=== PATIENT | male | born 1960 | race Two or more races ===

== ENCOUNTER 2016-12-15 20:12 | Emergency (ER) | payer BC ==
[2016-12-15 20:20] VITALS: TEMP 98.4; BMI 34.2
[2016-12-15] MEDS ORDERED: TRIAMTERENE AND HCTZ - 37.5 MG/25 MG CAPSULE PO ONE (20:48)
[2016-12-15] MEDS ORDERED: HYDROCHLOROTHIAZIDE 25 MG TABLET (FP) ONE (20:49)
--- NOTE | 2016-12-15 21:05 | PDOC ---
History of Present Illness - General History Source: Patient - History of Present Illness Initial Comments: 12/16/16 00:16 55-year-old with a history of hypertension presents to the emergency department complaining of 8/10 sharp intermittent pain to the left buttocks which radiates to the lateral mid thigh 2 days. Pain is exacerbated when ambulating and alleviated at rest. Patient states he was lifting something heavy at work when he felt acute pain. Patient denies any headache, dizziness, lightheadedness, visual disturbance, facial pain, neck pain, back pains, chest pain, shortness of breath, abdominal pains, extremity numbness or tingling sensation. Upon triage, patient was informed that his blood pressure was elevated. Patient states he ran out of his hypertension medication/HCTZ 25 mg by mouth 1 tab daily daily 2 months ago. Patient cannot recall his PMD's name but states he hasn't seen him 5 months. Patient last was seen at [facility] clinic and was given a refill of his hypertension medication which he ran out. Patient is asymptomatic. Timing/Duration: other (48hrs) Severity: mild Associated Symptoms: reports: denies symptoms <Chelo Castro - Last Filed: 12/16/16 00:19> <Srinath Griffith - Last Filed: 12/18/16 09:13> - General Chief Complaint: Chronic pain Stated Complaint: SIDE HURTS Time Seen by Provider: 12/15/16 20:30 Past History - Past Medical History HTN: Yes - Immunization History Immunization Up to Date: Yes - Psycho/Social/Smoking Cessation Hx Suicidal Ideation: No Smoking Status: Yes Smoking History: Current some day smoker Number of Cigarettes Smoked Daily: 10 Information on smoking cessation initiated: No Hx Alcohol Use: No Drug/Substance Use Hx: No <Chelo Castro - Last Filed: 12/16/16 00:19> <Srinath Griffith - Last Filed: 12/18/16 09:13> - Past Medical History Allergies/Adverse Reactions: Allergies Allergy/AdvReac Type Severity Reaction Status Date / Time No Known Allergies Allergy Verified 12/15/16 20:20 Home Medications: Ambulatory Orders Hydrochlorothiazide [Hctz -] 25 mg PO DAILY 12/13/12 Hctz 25Mg/Triamterene [Dyazide 25/37.5 -] 1 cap PO DAILY #30 capsule 12/16/16 Ketorolac Tromethamine [Toradol] 10 mg PO TID #21 tablet 12/16/16 Review of Systems - Review of Systems Able to Perform ROS?: Yes Comments:: 12/16/16 00:15 CONSTITUTIONAL: Absent: fever, chills, diaphoresis, generalized weakness, malaise, loss of appetite HEENT: Absent: rhinorrhea, nasal congestion, throat pain, throat swelling, difficulty swallowing, mouth swelling, ear pain, eye pain, visual Changes CARDIOVASCULAR: Absent: chest pain, loss of consciousness, palpitations, irregular heart rate, peripheral edema RESPIRATORY: Absent: cough, shortness of breath, dyspnea with exertion, orthopnea, wheezing, stridor, hemoptysis GASTROINTESTINAL: Absent: abdominal pain, abdominal distension, nausea, vomiting, diarrhea, constipation, melena, hematochezia GENITOURINARY: Absent: dysuria, frequency, urgency, hesitancy, hematuria, flank pain, genital pain MUSCULOSKELETAL: +Left buttock pain radiating to lat mid thigh Absent: myalgia, arthralgia, joint swelling SKIN: Absent: rash, itching, pallor HEMATOLOGIC/IMMUNOLOGIC: Absent: easy bleeding, easy bruising, lymphadenopathy, frequent infections ENDOCRINE: Absent: unexplained weight gain, unexplained weight loss, heat intolerance, cold intolerance NEUROLOGIC: Absent: headache, focal weakness or paresthesias, dizziness, unsteady gait, seizure, mental status changes, bladder or bowel incontinence PSYCHIATRIC: Absent: anxiety, depression, suicidal or homicidal ideation, hallucinations. Is the patient limited Gabonese proficient: No <Chelo Castro - Last Filed: 12/16/16 00:19> *Physical Exam - Vital Signs Last Vital Signs Temp Pulse Resp BP Pulse Ox 98.4 F 108 H 20 195/121 98 12/15/16 20:15 12/15/16 20:15 12/15/16 20:15 12/15/16 20:41 12/15/16 20:15 - Physical Exam Comments: 12/16/16 00:15 GENERAL: Well developed, well nourished. Awake and alert. No acute distress. HEENT: Normocephalic, atraumatic. PERRLA, EOMI. No conjunctival pallor. Sclera are non- icteric. Moist mucous membranes. Oropharynx is clear. NECK: Supple. Full ROM. No JVD. Carotid pulses 2+ and symmetric, without bruits. No thyromegaly. No lymphadenopathy. CARDIOVASCULAR: Regular rate and rhythm. No murmurs, rubs, or gallops. Distal pulses are 2+ and symmetric. PULMONARY: No evidence of respiratory distress. Lungs clear to auscultation bilaterally. No wheezing, rales or rhonchi. ABDOMINAL: Soft. Non-tender. Non-distended. No rebound or guarding. No organomegaly. Normoactive bowel sounds. MUSCULOSKELETAL Normal range of motion at all joints. No bony deformities or tenderness. No CVA tenderness. EXTREMITIES: No cyanosis. No clubbing. No edema. No calf tenderness. SKIN: Warm and dry. Normal capillary refill. No rashes. No jaundice. NEUROLOGICAL: Alert, awake, appropriate. Cranial nerves 2-12 intact. No deficits to light touch and temperature in face, upper extremities and lower extremities. No motor deficits in the in face, upper extremities and lower extremities. Normoreflexic in the upper and lower extremities. Normal speech. Toes are down- going bilaterally. Gait is normal without ataxia. PSYCHIATRIC: Cooperative. Good eye contact. Appropriate mood and affect. <Chelo Castro - Last Filed: 12/16/16 00:19> - Vital Signs Last Vital Signs Temp Pulse Resp BP Pulse Ox 98.4 F 89 19 162/98 98 12/15/16 20:15 12/16/16 00:28 12/16/16 00:28 12/16/16 00:28 12/16/16 00:28 <Srinath Griffith - Last Filed: 12/18/16 09:13> ED Treatment Course - LABORATORY CBC & Chemistry Diagram: 12/15/16 21:20 12/15/16 21:20 - Medications Given in the ED: ED Medications Discontinued Medications Generic Name Dose Route Start Last Admin Trade Name Freq PRN Reason Stop Dose Admin Triamterene/HCTZ 1 cap 12/15/16 20:48 12/15/16 20:52 Dyazide 25/37.5mg PO 12/15/16 20:49 1 cap ONCE ONE Administration <Chelo Castro - Last Filed: 12/16/16 00:19> - LABORATORY CBC & Chemistry Diagram: 12/15/16 21:20 12/15/16 21:20 - ADDITIONAL ORDERS Additional order review: 12/15/16 21:20 RBC 5.66 H MCV 82.7 MCHC 32.9 RDW 14.5 MPV 8.9 Neutrophils % 72.5 Lymphocytes % 17.2 Monocytes % 8.7 Eosinophils % 1.1 D Basophils % 0.5 - Medications Given in the ED: ED Medications Discontinued Medications Generic Name Dose Route Start Last Admin Trade Name Kentrell PRN Reason Stop Dose Admin Clonidine 0.1 mg 12/15/16 21:55 12/15/16 22:11 Catapres - PO 12/15/16 21:56 0.1 mg ONCE ONE Administration Ketorolac Tromethamine 60 mg 12/15/16 21:35 12/15/16 21:43 Toradol Injection - IM 12/15/16 21:36 60 mg ONCE ONE Administration Labetalol HCl 10 mg 12/15/16 22:50 12/15/16 23:09 Normodyne Injection - IVPUSH 12/15/16 22:51 10 mg ONCE ONE Administration Morphine Sulfate 4 mg 12/15/16 23:15 12/15/16 23:23 Morphine Injection - IVPUSH 12/15/16 23:16 4 mg ONCE ONE Administration Triamterene/HCTZ 1 cap 12/15/16 20:48 12/15/16 20:52 Dyazide 25/37.5mg PO 12/15/16 20:49 1 cap ONCE ONE Administration <Srinath Griffith - Last Filed: 12/18/16 09:13> Medical Decision Making - Medical Decision Making The patient was seen and evaluated in conjunction with LAURO Castro under my direct supervision, ancillary studies were reviewed. I agree with the plan as outlined by LAURO Castro. <Srinath Griffith - Last Filed: 12/18/16 09:13> *DC/Admit/Observation/Transfer - Discharge Dispostion Admit: No <Chelo Castro - Last Filed: 12/16/16 00:19> <Srinath Griffith - Last Filed: 12/18/16 09:13> Diagnosis at time of Disposition: Sciatic leg pain HTN (hypertension) Qualifiers: Hypertension type: unspecified Qualified Code(s): I10 - Essential (primary) hypertension - Discharge Dispostion Disposition: HOME Condition at time of disposition: Stable - Prescriptions Prescriptions: Hctz 25Mg/Triamterene [Dyazide 25/37.5 -] 1 cap PO DAILY #30 capsule Ketorolac Tromethamine [Toradol] 10 mg PO TID #21 tablet - Referrals Referrals: Leroy Chapin MD [Staff Physician] - Verna Shields MD [Staff Physician] - - Patient Instructions Printed Discharge Instructions: High Blood Pressure, DI for Sciatica Additional Instructions: YOU MUST SEE YOUR PHYSICIAN THIS WEEK. 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 Take your high blood pressure daily/HCTZ Return to the ER for severe/persistent/worsening symptoms As we've discussed in depth while you are in the emergency department, it is imperative that you follow-up with your physician regarding your hypertension this week. You do not get symptoms of headaches, dizziness, lightheadedness, visual disturbance or any discomfort when your blood pressure is elevated which can be very dangerous.
[2016-12-15 21:26] LABS: BASOPHIL 0.5 % (0-2.0); EOSINOPHIL 1.1 % (0-4.5); MCH 27.2 pg (25.7-33.7); MCHC 32.9 g/dl (32.0-35.9); MEAN CELL VOLUME 82.7 fl (80-96); MEAN PLT VOLUME 8.9 fl (7.5-11.1); NEUTROPHILS 72.5 % (42.8-82.8); PLATELET COUNT 158 K/MM3 (134-434); RDW 14.5 % (11.9-15.9); WHITE BLOOD COUNT 10.3 K/mm3 (4.0-10.0)
[2016-12-15] MEDS ORDERED: KETOROLAC TROMETHAMINE 60 MG/2 ML VIAL IM ONE (21:35)
[2016-12-15] MEDS ORDERED: KETOROLAC TROMETHAMINE 60 MG/2 ML VIAL ONE (21:38)
[2016-12-15] MEDS ORDERED: cloNIDine HCL 0.1 MG TABLET PO ONE (21:55)
[2016-12-15 21:56] LABS: ALBUMIN 4.2 g/dl (3.4-5.0); ALK PHOS 112 U/L (45-117); ANION GAP 7 (8-16); BILIRUBIN,TOTAL 0.6 mg/dL (0.2-1.0); CALCIUM 9.5 mg/dL (8.5-10.1); CO2 30 mmol/L (21-32); CREATININE 1.4 mg/dL (0.7-1.3); GLUCOSE,RANDOM 100 mg/dL (74-106); SGOT/AST 16 U/L (15-37); SGPT/ALT 32 U/L (12-78); TOT PROT 7.4 g/dl (6.4-8.2)
[2016-12-15] MEDS ORDERED: cloNIDine HCL 0.1 MG TABLET ONE (22:06)
[2016-12-15] MEDS ORDERED: LABETALOL HCL 5 MG/1 ML (100MG/20 ML VIAL) IVPUSH ONE (22:50)
[2016-12-15] MEDS ORDERED: LABETALOL HCL 5 MG/1 ML (200MG/40ML VIAL) IVPB ONE (22:56)
[2016-12-15] MEDS ORDERED: morphine CARPU-JECT 4 MG/1 ML DISP.SYRIN IVPUSH ONE (23:15)
[2016-12-15] MEDS ORDERED: morphine CARPU-JECT 4 MG/1 ML DISP.SYRIN ONE (23:19)
[2016-12-16 00:29] VITALS: BP 162/98; PULSE 89
[2016-12-16] MEDS ORDERED: KETOROLAC TROMETHAMINE 10 MG TABLET PO SCH (06:00)
== END 2016-12-16 00:32 | disposition home or self-care (01) ==
LOC: JER 20:12
PROC: 3E0333Z Introduction of Anti-inflammatory into Peripheral Vein, Percutaneous Approach (ICD-10-PCS; principal; 2016-12-15)
PROC: 3E033NZ Introduction of Analgesics, Hypnotics, Sedatives into Peripheral Vein, Percutaneous Approach (ICD-10-PCS; 2016-12-15)
PROC: 3E033GC Introduction of Other Therapeutic Substance into Peripheral Vein, Percutaneous Approach (ICD-10-PCS; 2016-12-15)
DX: M54.32 Sciatica, left side (principal); I10 Essential (primary) hypertension; F17.210 Nicotine dependence, cigarettes, uncomplicated
CPT/HCPCS: 36415; 80053; 85025; 99282-25

== ENCOUNTER 2017-04-10 15:29 | Emergency (ER) | payer BC ==
[2017-04-10 15:46] VITALS: BP 186/114; PULSE 100; TEMP 98.7; BMI 28.8
--- NOTE | 2017-04-10 15:46 | PDOC ---
Rapid Medical Evaluation Time Seen by Provider: 04/10/17 15:42 Medical Evaluation: Allergies Allergy/AdvReac Type Severity Reaction Status Date / Time No Known Allergies Allergy Verified 12/15/16 20:20 04/10/17 15:43 I have performed a brief in-person evaluation of this patient. The patient presents with a chief complaint of: Scalp abscess x 2 days. H/o HTN Pertinent physical exam findings: Hypertensive at triage w/ 4x2cm area on induration w/ overlying erythema I have ordered the following:nothing The patient will proceed to the ED for further evaluation. 04/10/17 15:44
--- NOTE | 2017-04-10 17:08 | PDOC ---
History of Present Illness - General Chief Complaint: Wound Stated Complaint: ABSCESS BOIL Time Seen by Provider: 04/10/17 15:42 Past History - Past Medical History Allergies/Adverse Reactions: Allergies Allergy/AdvReac Type Severity Reaction Status Date / Time No Known Allergies Allergy Verified 12/15/16 20:20 Home Medications: Ambulatory Orders Azilsartan Med/Chlorthalidone [Edarbyclor 40-25 mg Tablet] 1 each PO ASDIR 04/10 Cephalexin Monohydrate [Keflex -] 500 mg PO BID #14 capsule 04/10/17 Ibuprofen 800 mg PO TID #30 tablet 04/10/17 Sulfamethoxazole/Trimethoprim [Bactrim Ds -] 1 tab PO BID #14 tablet 04/10/17 COPD: No HTN: Yes - Immunization History Immunization Up to Date: Yes - Suicide/Smoking/Psychosocial Hx Smoking Status: Yes Smoking History: Current some day smoker Number of Cigarettes Smoked Daily: 10 Information on smoking cessation initiated: No Hx Alcohol Use: No Drug/Substance Use Hx: No *Physical Exam - Vital Signs Last Vital Signs Temp Pulse Resp BP Pulse Ox 98.7 F 100 H 18 186/114 100 04/10/17 15:30 04/10/17 15:30 04/10/17 15:30 04/10/17 15:30 04/10/17 15:30 *DC/Admit/Observation/Transfer Diagnosis at time of Disposition: Induration of skin - Discharge Dispostion Disposition: HOME Condition at time of disposition: Stable Admit: No - Referrals Referrals: Eliseo Andino [Primary Care Provider] - Yared Rushing MD [Staff Physician] - - Patient Instructions Printed Discharge Instructions: DI for Skin Abscess Additional Instructions: You have a skin infection to the back of her scalp. Please take the antibiotics as prescribed. Your prescribed Keflex and Bactrim. You may take ibuprofen as needed for pain. Please wash her work, to avoid getting more bacteria in the area of the skin. Please call Dr. Rushing's office tomorrow, general surgery, for evaluation. Return to the emergency department if you develop fevers, chills, headache, changes in your vision, neck pain, or any changes in your symptoms. - Post Discharge Activity Forms/Work/School Notes: Back to Work
== END 2017-04-10 17:18 | disposition home or self-care (01) ==
LOC: JERFT 15:29
DX: R23.4 Changes in skin texture (principal); F17.210 Nicotine dependence, cigarettes, uncomplicated; I10 Essential (primary) hypertension
CPT/HCPCS: 99281-25

== ENCOUNTER 2017-07-31 07:24 | Emergency (ER) | payer BC ==
[2017-07-31 07:42] VITALS: BMI 33.0
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
[2017-07-31] MEDS ORDERED: DIPHTH,PERTUSS(ACELL),TET 0.5 ML DISP.SYRIN IM ONE (08:59)
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
[2017-07-31 12:21] VITALS: BP 145/89; PULSE 87; TEMP 98
== END 2017-07-31 09:31 | disposition home or self-care (01) ==
LOC: JER 07:24
PROC: 3E0234Z Introduction of Serum, Toxoid and Vaccine into Muscle, Percutaneous Approach (ICD-10-PCS; principal; 2017-07-31)
DX: T24.201A Burn of second degree of unspecified site of right lower limb, except ankle and foot, initial encounter (principal); T31.0 Burns involving less than 10% of body surface; X12.XXXA Contact with other hot fluids, initial encounter; Y93.89 Activity, other specified; Y92.69 Other specified industrial and construction area as the place of occurrence of the external cause; Y99.0 Civilian activity done for income or pay
CPT/HCPCS: 90715; 99281-25

== ENCOUNTER 2021-07-11 10:50 | Inpatient (IN) | payer BC ==
[2021-07-11] MEDS ORDERED: CEFTRIAXONE 2,000 MG in DEXTROSE 5%-WATER - 50 ML IVPB ONE (11:30)
[2021-07-11] MEDS ORDERED: VANCOMYCIN HCL 1,500 MG in DEXTROSE 5%-WATER - 500 ML IVPB ONE (11:30)
[2021-07-11 12:02] LABS: ALBUMIN 3.9 g/dl (3.4-5.0); BILIRUBIN,TOTAL 0.5 mg/dl (0.2-1); CALCIUM 9.5 mg/dl (8.5-10); CREATININE 1.4 mg/dl (0.55-1.3); TOT PROT 6.7 g/dl (6.4-8.2)
[2021-07-11 12:42] LABS: BASO % 0.6 % (0-2.0); EOS % 4.5 % (0-4.5); HEMATOCRIT 42.7 % (35.4-49); HEMOGLOBIN 13.5 GM/dL (11.7-16.9); LYMPH % 27.1 % (8-40); MCHC 31.5 g/dl (32.0-35.9); MEAN CELL VOLUME 82.4 fl (80-96); MEAN PLT VOLUME 9.1 fl (7.5-11.1); MONO % 8.9 % (3.8-10.2); NEUT % 58.9 % (42.8-82.8); PLATELET COUNT 201 10^3/uL (134-434); RBC 5.18 M/mm3 (4.00-5.60); RDW 14.5 % (11.9-15.9); WHITE BLOOD COUNT 6.3 K/mm3 (4.0-10.0)
[2021-07-11] MEDS ORDERED: amLODIPine BESYLATE 5 MG TABLET (FP) PO ONE (14:44)
[2021-07-11] MEDS ORDERED: amLODIPine BESYLATE 5 MG TABLET (FP) ONE (14:51)
[2021-07-11 18:03] VITALS: BMI 38.9
[2021-07-11] MEDS: CLINDAMYCIN 600MG PREMIX IVPB 600 MG/50 ML BAG IVPB SCH (18:12)
[2021-07-11] MEDS ORDERED: LABETALOL HCL 5 MG/1 ML (100MG/20 ML VIAL) IVPUSH ONE (19:32)
[2021-07-12] MEDS: CLINDAMYCIN 600MG PREMIX IVPB 600 MG/50 ML BAG IVPB SCH ×2 (02:53→09:53)
[2021-07-12] MEDS ORDERED: diphenhydrAMINE HCL 25 MG CAPSULE (FP) PO PRN (03:45)
[2021-07-12 07:49] VITALS: BP 175/89; PULSE 77; TEMP 98.9
[2021-07-12] MEDS ORDERED: DEXTROSE 5%-WATER - 50 ML IVPB ONE (09:12)
[2021-07-12] MEDS ORDERED: cefTRIAXone SODIUM 1 GM VIAL ONE (09:12)
[2021-07-12] MEDS ORDERED: CEFTRIAXONE 1 GM in DEXTROSE 5%-WATER - 50 ML IVPB SCH (10:00)
== END 2021-07-12 13:27 | disposition left against medical advice (07) | DRG 603 ==
LOC: FER 10:50 → FM/S 11:14
PROVIDERS: ADMIT Internal Medicine; ATTEND Family Medicine
DX: L03.213 Periorbital cellulitis (principal); H02.841 Edema of right upper eyelid; I10 Essential (primary) hypertension; H57.89 Other specified disorders of eye and adnexa
CPT/HCPCS: 36415; 70481-TC; 80053; 85025; 93005; 99285-25; C9803; U0003; U0005

== ENCOUNTER 2024-08-17 20:01 | Emergency (ER) | payer BC, OTHER ==
[2024-08-17 20:17] VITALS: BP 144/77; PULSE 91; RESP 20; TEMP 98.1; BMI 31.6
[2024-08-17] MEDS ORDERED: DEXAMETHASONE SOD PHOSPHATE 10 MG/1 ML VIAL ONE (20:47)
[2024-08-17] MEDS ORDERED: diphenhydrAMINE HCL 25 MG CAPSULE (FP) PO ONE (20:47)
[2024-08-17] MEDS ORDERED: FAMOTIDINE 20 MG TABLET ONE (20:47)
[2024-08-17] MEDS: FAMOTIDINE 20 MG TABLET PO ONE (20:52)
[2024-08-17] MEDS: DEXAMETHASONE SOD PHOSPHATE 10 MG/1 ML VIAL IM ONE (20:52)
[2024-08-17] MEDS: diphenhydrAMINE HCL 25 MG CAPSULE (FP) PO ONE (20:52)
== END 2024-08-17 21:31 | disposition home or self-care (01) ==
LOC: JERFT 20:01
PROC: 3E023GC Introduction of Other Therapeutic Substance into Muscle, Percutaneous Approach (ICD-10-PCS; principal; 2024-08-17)
DX: R22.0 Localized swelling, mass and lump, head (principal); T78.1XXA Other adverse food reactions, not elsewhere classified, initial encounter
CPT/HCPCS: 99284-25; J1100